=== PATIENT | male | born 1940 | race African-American/Black ===

== ENCOUNTER 2019-04-10 16:20 | Emergency (ER) | payer OTHER ==
[~2019-04-10] VITALS: Ht 185.4 cm; Wt 99.5 kg
[2019-04-10 16:25] VITALS: BP 158/93; TEMP 97.7
[2019-04-10 17:02] LABS: BASO # 0.1 (0.0-0.2); BASO % 1.3 % (0.0-2.0); EOS # 0.5 (0.0-0.7); EOS % 10.4 % (0-4.0); GRAN # 1.4 (1.4-6.5); GRAN % 31.8 % (42.2-75.2); HEMATOCRIT 45.4 % (42.0-52.0); LYMPH % 43.6 % (20.0-51.0); MEAN CELL VOLUME 90 fl (80.0-100.0); MEAN CORPUSCULAR HEMOGLOBIN 30 pg (27.0-31.0); MEAN CORPUSCULAR HGB CONC 33 g/dl (33.0-37.0); MEAN PLATELET VOLUME 9.5 fl (7.4-10.4); MONO # 0.6 (0.1-0.6); MONO % 12.7 % (1.7-9.3); PLATELET COUNT 182 K/mm3 (130-400); RED BLOOD COUNT 5.06 M/mm3 (4.20-5.60); REDCELL DISTRIBUTION WIDTH-CV 13.6 % (11.5-14.5)
[2019-04-10 17:15] LABS: ALANINE AMINOTRANSFERASE 15 U/L (21-72); ALBUMIN 3.8 gm/dL (3.5-5.0); ALKALINE PHOSPHATASE 79 U/L (50-136); ANION GAP 10 mmol/L (7-16); AST,SGOT 19 U/L (15-37); BILIRUBIN,TOTAL 0.3 mg/dL (0.0-1.0); BLOOD UREA NITROGEN 14 mg/dL (9-20); CALCIUM 8.8 mg/dL (8.4-10.2); CARBON DIOXIDE 25 mmol/L (22-30); CHLORIDE 105 mmol/L (98-107); CREATININE, serum 1.05 (0.66-1.25); GLUCOSE 104 mg/dL (74-106); POTASSIUM 4.3 mmol/L (3.4-5.0); SODIUM 140 mmol/L (137-145); TOTAL PROTEIN 7.2 gm/dL (6.4-8.2)
[2019-04-10 17:16] LABS: C-REACTIVE PROTEIN < 0.5 mg/dL (0.0-0.9)
[2019-04-10 17:18] LABS: INR 2.6 (0.8-3.0); PROTHROMBIN TIME 31.5 SECONDS (9.7-12.8)
[2019-04-10 17:24] LABS: D-DIMER < 200.00 ng/mLDDu (200-230)
[2019-04-10] MEDS ORDERED: CEPHALEXIN500 M1 PO (17:34)
[2019-04-10] MEDS ORDERED: GLUCOPHAGE XR750 MG PO (17:37)
[2019-04-10] MEDS ORDERED: STOOL SOFTENER100 M2 PO (17:38)
[2019-04-10] MEDS ORDERED: NEURONTIN100 MG/CAP PO (17:39)
[2019-04-10] MEDS ORDERED: LOPRESSOR 550 MG/TAB PO (17:41)
[2019-04-10] MEDS ORDERED: ALDACTONE 25MG25 M1 PO (17:41)
[2019-04-10] MEDS ORDERED: JANTOVEN5 MG PO (17:43)
[2019-04-10] MEDS ORDERED: ZESTRIL40 MG PO (17:43)
[2019-04-10] MEDS ORDERED: LASIX 40MG TABL40 MG PO (17:44)
[2019-04-10] MEDS ORDERED: PRINIVIL40 MG PO (17:44)
[2019-04-10] MEDS ORDERED: MEVACOR40 MG PO (17:45)
[2019-04-10 17:55] VITALS: PULSE 68
== END 2019-04-10 17:55 | disposition home or self-care (01) ==
LOC: COL.ER 16:20
PROVIDERS: Emergency Medicine
DX: R22.43 Localized swelling, mass and lump, lower limb, bilateral (principal); M79.662 Pain in left lower leg; I25.10 Atherosclerotic heart disease of native coronary artery without angina pectoris; I10 Essential (primary) hypertension; Z79.01 Long term (current) use of anticoagulants

== ENCOUNTER 2019-10-16 23:30 | Observation (INO) | payer MEDICARE ==
[~2019-10-16] VITALS: Ht 182.9 cm; Wt 101.3 kg
[~2019-10-16 23:30] MED LIST: ALDACTONE 25MG25 M1 PO; CEPHALEXIN500 M1 PO; GLUCOPHAGE XR750 MG PO; JANTOVEN5 MG PO; LASIX 40MG TABL40 MG PO; LOPRESSOR 550 MG/TAB PO; MEVACOR40 MG PO; NEURONTIN100 MG/CAP PO; PRINIVIL40 MG PO; STOOL SOFTENER100 M2 PO; ZESTRIL40 MG PO
[2019-10-17 00:31] LABS: BASO % 0.8 % (0.0-2.0); EOS # 0.1 (0.0-0.7); EOS % 2.8 % (0-4.0); GRAN # 2.8 (1.4-6.5); GRAN % 54.2 % (42.2-75.2); HEMATOCRIT 48.3 % (42.0-52.0); HEMOGLOBIN 15.3 g/dl (13.5-18.0); LYMPH # 1.5 (1.2-3.4); LYMPH % 30.2 % (20.0-51.0); MEAN CELL VOLUME 94 fl (80.0-100.0); MEAN CORPUSCULAR HEMOGLOBIN 30 pg (27.0-31.0); MEAN CORPUSCULAR HGB CONC 32 g/dl (33.0-37.0); MEAN PLATELET VOLUME 9.3 fl (7.4-10.4); MONO # 0.6 (0.1-0.6); MONO % 11.8 % (1.7-9.3); PLATELET COUNT 188 K/mm3 (130-400); RED BLOOD COUNT 5.14 M/mm3 (4.20-5.60); REDCELL DISTRIBUTION WIDTH-CV 13.9 % (11.5-14.5)
[2019-10-17 00:33] LABS: INR 1.1 (0.8-3.0); PROTHROMBIN TIME 12.3 SECONDS (9.7-12.8)
[2019-10-17 00:36] LABS: PARTIAL THROMBOPLASTIN TIME 37.1 SECONDS (26.0-37.0)
[2019-10-17 00:42] LABS: ALBUMIN 4.2 gm/dL (3.5-5.0); BILIRUBIN,TOTAL 1.1 mg/dL (0.0-1.0); CALCIUM 9.7 mg/dL (8.4-10.2); CREATININE, serum 1.24 (0.66-1.25); POTASSIUM 4.1 mmol/L (3.4-5.0); TOTAL PROTEIN 7.9 gm/dL (6.4-8.2)
[2019-10-17 03:42] VITALS: BP 179/103; PULSE 101; TEMP 98
[2019-10-17] MEDS ORDERED: XALATAN EYE DROPS (04:05)
[2019-10-17] MEDS ORDERED: TRIAM OI 0.1 454 TOP (04:08)
[2019-10-17] MEDS ORDERED: ELIQUIS 5MG PO (04:12)
[2019-10-17] MEDS ORDERED: TOPROL XL 25MG25 MG PO (04:15)
[2019-10-17] MEDS ORDERED: ALDACTONE 25MG25 M1 PO (04:16)
--- NOTE | 2019-10-17 04:40 | NUR ---
PATIENT'S ARRIVAL PATIENT IS SUSPIOUS OF STAFF ACTIONS AND PATIENT IS AFRAID OF GETTING ILL, FROM THE ROOM EQUIPMENT OR STAFF, ANXIOUS
--- NOTE | 2019-10-17 07:15 | NUR ---
Bedside shift report received from LEEANN Pedraza. Patient is sitting up in bed, full assessment completed, vital signs stable. Patient has a swollen lower lip and is slightly drooling, speech a little slurred from lip edema but able to communicate. Patient is slightly confused, but mostly oriented. Bed in lowest position. Side rails up x3. Call light and personal belongings within reach. Patient has no complaints or concerns at this time.
[2019-10-17 08:00] VITALS: BP 149/106; PULSE 94; TEMP 98.3
--- NOTE | 2019-10-17 09:00 | NUR ---
Attempted to give patient fluids PO to assess ability to swallow; however, patient was unable to use straw or drink from cup. 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 Will reassess later this shift, but physician made aware of this at this time.
[2019-10-17 11:36] VITALS: BP 149/88; PULSE 90; TEMP 98.2
--- NOTE | 2019-10-17 14:29 | NUR ---
SW attempted to meet with the patient to complete initial intake but the patient was hard to rouse. SW contacted the patient's daughter, Manuela ph # ([phone]) to complete initial intake. The patient lives in [facility] with Manuela. The patient has a cane and no other DME and is independent with ADLs. The patient sees a providers at [facility] and also at the [facility], but does not know what team he is on. The patient receives medications from the [place] and [facility]. Other pharmacies are used too if they are [facility]. The patient does not have advanced directives in the EMR. Manuela states the patient has two children, herself and a son, Jonathan Estrada. in [place], [place] ph# ([phone]). SHARON will continue to follow to ensure a safe discharge.
[2019-10-17 16:00] VITALS: BP 153/99; PULSE 77; TEMP 98.1
--- NOTE | 2019-10-17 19:15 | NUR ---
Bedside shift report given to LEEANN Wheeler and care handed over at this time.
[2019-10-17 20:00] VITALS: BP 144/81; PULSE 51; TEMP 97.8
[2019-10-18] VITALS: BP 147/93; PULSE 77; TEMP 97.8
[2019-10-18 04:00] VITALS: BP 155/89; PULSE 57; TEMP 98
[2019-10-18 06:06] LABS: BASO % 0.1 % (0.0-2.0); GRAN # 6.3 (1.4-6.5); GRAN % 82.7 % (42.2-75.2); HEMATOCRIT 44.5 % (42.0-52.0); HEMOGLOBIN 14.1 g/dl (13.5-18.0); LYMPH % 13.1 % (20.0-51.0); MEAN CELL VOLUME 92 fl (80.0-100.0); MEAN CORPUSCULAR HEMOGLOBIN 29 pg (27.0-31.0); MEAN CORPUSCULAR HGB CONC 32 g/dl (33.0-37.0); MEAN PLATELET VOLUME 9.9 fl (7.4-10.4); MONO # 0.3 (0.1-0.6); MONO % 3.8 % (1.7-9.3); PLATELET COUNT 193 K/mm3 (130-400); RED BLOOD COUNT 4.83 M/mm3 (4.20-5.60)
[2019-10-18 06:21] LABS: CALCIUM 9.4 mg/dL (8.4-10.2); CREATININE, serum 1.11 (0.66-1.25); POTASSIUM 4.3 mmol/L (3.4-5.0)
[2019-10-18 08:00] VITALS: BP 155/89; PULSE 57; TEMP 98.5
--- NOTE | 2019-10-18 10:57 | NUR ---
SW attended clinical rounds with the team. The patient is to have his diet advanced this day to see how he does eating since he has his lower lip angioedema. Will continue to [facility].
[2019-10-18 12:00] VITALS: BP 154/81; PULSE 71; TEMP 98.2
[2019-10-18] MEDS ORDERED: PREDNISONE20 MG PO ×2 (12:04→12:07)
--- NOTE | 2019-10-18 12:50 | NUR ---
Pt concerned to discharge home, pt informs "the doctor yesterday said that the swelling in my lips would be completely gone and back to normal by now, so I dont think I should go home." MD Darwin notified - 1257 MD Darwin here on unit speaking with pt. Pt educated by MD Darwin that swelling of lips will take several days to return to normal. Pt also stating concern of 1-2+ pitting edema in legs - legs assessed by myself and MD Darwin - no change from AM assessment Pt able to consume 100% of 2 full liquid meals without difficulty - pt does experience occasional dribbling of fluids during drinking - no choking or signs on aspiration assessed. Pt able to swallow pills without difficulty
--- NOTE | 2019-10-18 13:45 | NUR ---
Pt now expressing zero concerns regarding discharge home
--- NOTE | 2019-10-18 13:46 | NUR ---
Pt's cane and wallet with pt for discharge
--- NOTE | 2019-10-18 15:52 | NUR ---
The patient discharged home today, 10/17 with family support. There are no additional needs at this time.
== END 2019-10-18 14:15 | disposition home or self-care (01) ==
LOC: COL.ER 23:30 → IMCU 10-17 01:29
PROVIDERS: Emergency Medicine
DX: T78.3XXA Angioneurotic edema, initial encounter (principal); I10 Essential (primary) hypertension; E78.5 Hyperlipidemia, unspecified; E11.9 Type 2 diabetes mellitus without complications; Z79.84 Long term (current) use of oral hypoglycemic drugs; E66.9 Obesity, unspecified; F41.9 Anxiety disorder, unspecified; Z79.899 Other long term (current) drug therapy; Z88.8 Allergy status to other drugs, medicaments and biological substances
CPT/HCPCS: G0378; J1200; J1650; J1720; J2920; J2930; J7120

== ENCOUNTER 2020-05-19 17:16 | Emergency (ER) | payer MEDICARE ==
[~2020-05-19] VITALS: Ht 182.9 cm; Wt 99.5 kg
[~2020-05-19 17:16] MED LIST changes: +ELIQUIS 5MG PO; +PREDNISONE20 MG PO; +TOPROL XL 25MG25 MG PO; +TRIAM OI 0.1 454 TOP; +XALATAN EYE DROPS
[2020-05-19 17:28] VITALS: TEMP 98.2
[2020-05-19 20:00] LABS: BASO % 0.9 % (0.0-2.0); EOS # 0.3 (0.0-0.7); EOS % 6.1 % (0-4.0); GRAN # 1.7 (1.4-6.5); GRAN % 38.3 % (42.2-75.2); HEMATOCRIT 46.9 % (42.0-52.0); HEMOGLOBIN 14.9 g/dl (13.5-18.0); LYMPH # 1.8 (1.2-3.4); LYMPH % 40.8 % (20.0-51.0); MEAN CELL VOLUME 93 fl (80.0-100.0); MEAN CORPUSCULAR HEMOGLOBIN 30 pg (27.0-31.0); MEAN CORPUSCULAR HGB CONC 32 g/dl (33.0-37.0); MEAN PLATELET VOLUME 9.9 fl (7.4-10.4); MONO # 0.6 (0.1-0.6); MONO % 13.7 % (1.7-9.3); PLATELET COUNT 196 K/mm3 (130-400); RED BLOOD COUNT 5.05 M/mm3 (4.20-5.60); REDCELL DISTRIBUTION WIDTH-CV 13.5 % (11.5-14.5)
[2020-05-19 20:12] LABS: ALANINE AMINOTRANSFERASE 10 U/L (4-49); ALBUMIN 4.2 gm/dL (3.5-5.0); ALKALINE PHOSPHATASE 91 U/L (50-136); ANION GAP 8 mmol/L (7-16); AST,SGOT 20 U/L (15-37); BILIRUBIN,TOTAL 0.6 mg/dL (0.0-1.0); BLOOD UREA NITROGEN 18 mg/dL (9-20); CALCIUM 9.8 mg/dL (8.4-10.2); CARBON DIOXIDE 30 mmol/L (22-30); CHLORIDE 102 mmol/L (98-107); CREATININE, serum 1.09 (0.66-1.25); GLUCOSE 97 mg/dL (74-106); LIPASE 75 U/L (23-300); MAGNESIUM 1.8 mg/dL (1.6-2.3); POTASSIUM 4.9 mmol/L (3.4-5.0); SODIUM 139 mmol/L (137-145); TOTAL PROTEIN 7.7 gm/dL (6.4-8.2)
[2020-05-19 20:26] LABS: TROPONIN-I < 0.012 ng/mL (0.000-0.035)
[2020-05-19 20:44] LABS: COLLECTION METHOD CLEAN CATCH
[2020-05-19 20:50] LABS: MUCOUS Present /lpf; PH 6 (5-8); SQUAMOUS EPITHELIAL None Seen /hpf; URINE APPEARANCE Clear; URINE BACTERIA None Seen /hpf; URINE BILIRUBIN Negative (NEGATIVE); URINE BLOOD Negative (NEGATIVE); URINE COLOR Yellow; URINE GLUCOSE Negative (NEGATIVE); URINE KETONE Negative (NEGATIVE); URINE LEUKOCYTE ESTERASE Negative (NEGATIVE); URINE NITRATE Negative (NEGATIVE); URINE PROTEIN(semi-quant) Negative (NEGATIVE); URINE RBC 0-2 /hpf; URINE UROBILINOGEN Negative (NEGATIVE); URINE WBC 0-2 /hpf
[2020-05-20 00:30] VITALS: BP 154/92; PULSE 62
== END 2020-05-20 00:30 | disposition home or self-care (01) ==
LOC: COL.ER 17:16
PROVIDERS: Emergency Medicine
DX: R53.83 Other fatigue (principal); R26.9 Unspecified abnormalities of gait and mobility; E11.9 Type 2 diabetes mellitus without complications; I10 Essential (primary) hypertension; I25.10 Atherosclerotic heart disease of native coronary artery without angina pectoris; Z95.9 Presence of cardiac and vascular implant and graft, unspecified; Z79.52 Long term (current) use of systemic steroids; Z79.01 Long term (current) use of anticoagulants; Z79.84 Long term (current) use of oral hypoglycemic drugs

== ENCOUNTER 2020-05-26 14:38 | Emergency (ER) | payer MEDICARE ==
[~2020-05-26] VITALS: Ht 182.9 cm; Wt 104.1 kg
[2020-05-26 14:58] VITALS: TEMP 98.2
[2020-05-26 16:38] LABS: COLLECTION METHOD CLEAN CATCH
[2020-05-26 16:49] LABS: MUCOUS Present /lpf; PH 5 (5-8); SQUAMOUS EPITHELIAL None Seen /hpf; URINE APPEARANCE Hazy; URINE BACTERIA None Seen /hpf; URINE BILIRUBIN Negative (NEGATIVE); URINE BLOOD Negative (NEGATIVE); URINE COLOR Yellow; URINE GLUCOSE Negative (NEGATIVE); URINE KETONE Negative (NEGATIVE); URINE LEUKOCYTE ESTERASE Negative (NEGATIVE); URINE NITRATE Negative (NEGATIVE); URINE PROTEIN(semi-quant) 1+ (NEGATIVE); URINE UROBILINOGEN Negative (NEGATIVE); URINE WBC 0-2 /hpf
[2020-05-26 18:56] LABS: BASO % 0.6 % (0.0-2.0); EOS # 0.3 (0.0-0.7); EOS % 4.8 % (0-4.0); GRAN # 2.2 (1.4-6.5); GRAN % 41.1 % (42.2-75.2); HEMOGLOBIN 14.1 g/dl (13.5-18.0); LYMPH # 2.1 (1.2-3.4); MEAN CELL VOLUME 90 fl (80.0-100.0); MEAN CORPUSCULAR HEMOGLOBIN 29 pg (27.0-31.0); MEAN CORPUSCULAR HGB CONC 33 g/dl (33.0-37.0); MEAN PLATELET VOLUME 9.8 fl (7.4-10.4); MONO # 0.7 (0.1-0.6); MONO % 13.3 % (1.7-9.3); PLATELET COUNT 211 K/mm3 (130-400); RED BLOOD COUNT 4.79 M/mm3 (4.20-5.60); REDCELL DISTRIBUTION WIDTH-CV 13.4 % (11.5-14.5)
[2020-05-26 19:09] LABS: ALBUMIN 3.4 gm/dL (3.5-5.0); BILIRUBIN,TOTAL 0.4 mg/dL (0.0-1.0); CALCIUM 9.3 mg/dL (8.4-10.2); CREATININE, serum 1.11 (0.66-1.25); POTASSIUM 3.6 mmol/L (3.4-5.0); TOTAL PROTEIN 6.8 gm/dL (6.4-8.2)
[2020-05-26 20:51] VITALS: BP 160/95; PULSE 72
== END 2020-05-26 21:00 | disposition home or self-care (01) ==
LOC: COL.ER 14:38
PROVIDERS: Nurse Practitioner Primary Care
DX: I86.1 Scrotal varices (principal); I10 Essential (primary) hypertension; E78.5 Hyperlipidemia, unspecified; E11.9 Type 2 diabetes mellitus without complications; I50.9 Heart failure, unspecified; Z79.84 Long term (current) use of oral hypoglycemic drugs; Z88.1 Allergy status to other antibiotic agents; Z87.891 Personal history of nicotine dependence; Z79.52 Long term (current) use of systemic steroids; Z79.01 Long term (current) use of anticoagulants
CPT/HCPCS: J2270; Q9967

== ENCOUNTER 2023-09-25 09:40 | Emergency (ER) | payer MEDICARE, OTHER ==
[~2023-09-25 09:40] MED LIST changes: +ASPIRIN 81M81 MG/TA2 PO; +COZAAR 50MG50 MG/TAB PO; +DEBROX OT; +FLOMAX 0.40.4 MG/CAP PO; +GENTLE LAXATIVE5 MG PO; +IMODIUM 2MG CAPS2 MG PO; +LASIX 20MG TABL20 MG PO; +LOVENOX120 MG/0.8 SQ; +MILK OF MA400 MG/52 PO; +MYLANTA MAXIMU355 M1 PO; +NAMENDA5 MG; +NAMENDA5 MG PO; +NATURAL SENNA8.6 MG PO; +NESINA12.5 PO; +PROBIOTIC ACID1 EAC3 PO; +ROCKLATAN 0.022.5 ML OP; +SENEXON-S 50-81 EACH PO; +TYLENOL 325MG325 MG PO; +TYLENOL SU325 MG/SUP RC; +VITAMIN D3400 I1
[2023-09-25 11:41] VITALS: TEMP 98.2
[2023-09-25] MEDS ORDERED: NS 1,000 ML IV ONE (12:00)
[2023-09-25 12:19] LABS: BASO % 0.9 % (0.0-2.0); EOS # 0.2 K/mm3 (0.0-0.7); EOS % 4.2 % (0.0-4.0); GRAN # 1.9 K/mm3 (1.4-6.5); GRAN % 43.7 % (42.2-75.2); HEMATOCRIT 50.7 % (42.0-52.0); HEMOGLOBIN 16.7 g/dl (13.5-18.0); LYMPH # 1.7 K/mm3 (1.2-3.4); LYMPH % 40.4 % (20.0-51.0); MEAN CELL VOLUME 92 fl (80.0-100.0); MEAN CORPUSCULAR HEMOGLOBIN 30 pg (27-31); MEAN CORPUSCULAR HGB CONC 33 g/dl (33.0-37.0); MEAN PLATELET VOLUME 9.8 fl (7.4-10.4); MONO # 0.5 K/mm3 (0.1-0.6); MONO % 10.6 % (1.7-9.3); PLATELET COUNT 168 K/mm3 (130-400); RED BLOOD COUNT 5.53 M/mm3 (4.20-5.60); REDCELL DISTRIBUTION WIDTH-CV 13.5 % (11.5-14.5)
[2023-09-25 12:38] LABS: ALBUMIN 3.9 g/dL (3.4-4.8); BILIRUBIN,TOTAL 0.5 mg/dL (0.2-1.2); C-REACTIVE PROTEIN 0.08 mg/dL (0.00-0.50); CALCIUM 10.2 mg/dL (8.4-10.2); CREATININE, serum 1.66 mg/dL (0.72-1.25); POTASSIUM 4.6 mEq/L (3.5-4.5); TOTAL PROTEIN 7.7 g/dl (6.2-8.1)
[2023-09-25] MEDS ORDERED: Iohexol 300 - 100 ML VIAL IV ONE (13:10)
[2023-09-25] MEDS ORDERED: NS 100 ML IV SCH (13:11)
[2023-09-25 16:03] VITALS: BP 134/72; PULSE 79
== END 2023-09-25 16:03 | disposition home or self-care (01) ==
LOC: COL.ER 09:40
PROVIDERS: Nurse Practitioner
DX: K59.00 Constipation, unspecified (principal); Z87.891 Personal history of nicotine dependence
CPT/HCPCS: J7030; Q9967

== ENCOUNTER 2024-03-13 11:30 | Inpatient (IN) | payer OTHER ==
[~2024-03-13] VITALS: Ht 177.8 cm; Wt 90.9 kg
[2024-03-13] MEDS ORDERED: Succinylcholine PF 200 MG/10 ML SYRINGE IV SCH (11:39)
[2024-03-13] MEDS ORDERED: EPINEPHrine 1 MG/10 ML (1:10,000) SYRINGE IV SCH (11:46)
[2024-03-13] MEDS ORDERED: fentaNYL 50 MCG/ML 2 ML VIAL IV ONE (12:00)
[2024-03-13 12:05] LABS: HEMATOCRIT 51.8 % (42.0-52.0); MEAN CELL VOLUME 97 fl (80.0-100.0); MEAN CORPUSCULAR HEMOGLOBIN 30 pg (27-31); MEAN CORPUSCULAR HGB CONC 31 g/dl (33.0-37.0); PLATELET COUNT 143 K/mm3 (130-400); RED BLOOD COUNT 5.37 M/mm3 (4.20-5.60); REDCELL DISTRIBUTION WIDTH-CV 13.7 % (11.5-14.5)
--- NOTE | 2024-03-13 12:08 | NUR ---
SHARON received information that pt arrived as a code in progress. Pt was found down by Home Health nurse. SHARON called daughter, Manuela [phone] [phone] and left voicemails. SHARON called Makenna at [facility] who has no further DNR or DPOA-HC. She will reach out to the [facility] to retrieve anything. Later confirmed there were no additonal documents, but their [place] nursing notes report he is a DNR. SHARON located son-in-law, Ajith Gandhi [phone] and provided update and needing to speak with Manuela. He reports they are at the [facility] and daughter is in the back getting surgery. He was informed of the urgency and SANDRINE Milligan [facility]. Daughter was under anesthesia, but able to vocalize that pt is likely a DNR. SHARON found History and Physical and notes from 2021 indicating a DNR or no intubation in records. SHARON spoke with Levar Mcgee who has no further information and has had pt on services for awhile. SHARON updated RN's, SANDRINE Milligan, and Dr. Shipley on pt's NOK status and reported wishes of DNR, in the event pt codes again. He is intubated at this time due to prior unknown code status upon arrival and no NOK reporting such.
[2024-03-13 12:15] LABS: ALBUMIN 3.1 g/dL (3.4-4.8); BILIRUBIN,TOTAL 0.6 mg/dL (0.2-1.2); CALCIUM 9.1 mg/dL (8.4-10.2); CREATININE, serum 1.76 mg/dL (0.72-1.25); POTASSIUM 4.1 mEq/L (3.5-4.5); TOTAL PROTEIN 6.6 g/dl (6.2-8.1)
[2024-03-13] MEDS ORDERED: Etomidate 20 MG/10 ML VIAL IV ONE (12:15)
[2024-03-13 12:29] LABS: TROPONIN-I 0.074 ng/mL (0.00-0.033)
[2024-03-13 12:33] VITALS: BP 86/64; PULSE 113
[2024-03-13] MEDS ORDERED: cefTRIAXone 1 G in Water For Injection,Sterile 10 ML IV ONE (12:45)
[2024-03-13 12:53] VITALS: BP 95/67; PULSE 112
[2024-03-13 13:12] LABS: LYMPHOCYTE 45 % (20.0-51.0); NEUTROPHILS 41 % (42.0-75.2)
[2024-03-13 13:13] VITALS: BP 110/73; PULSE 110
[2024-03-13 13:13] LABS: PLATELET ESTIMATE NORMAL (NORMAL)
[2024-03-13 13:14] LABS: EOSINOPHIL 1 % (0-4); METAMYELOCYTE 2 % (0-0)
[2024-03-13 13:33] VITALS: BP 102/73; PULSE 106
[2024-03-13] MEDS ORDERED: Ondansetron 4 MG/2 ML VIAL IV PRN ×2 (13:45→16:45)
[2024-03-13] MEDS ORDERED: fentaNYL 100 ML IV SCH (14:45)
[2024-03-13] MEDS ORDERED: Albuterol 0.083% Neb Soln 2.5 MG/3 ML UD IH PRN (15:15)
[2024-03-13] MEDS ORDERED: Naloxone 0.4 MG/ML VIAL IV PRN (15:15)
--- NOTE | 2024-03-13 15:38 | NUR ---
convention worker was informed by LEEANN Zamarripa that pt's family is in the waiting room. Grand-daughter saw pt earlier and was at bedside and obtained update. SW spoke with RN who was agreeable to SW provided update on status and if they would like to continue aggressive vs comfort care. SW met with daughter, Manuela, son-in-law, Ray, and grand-daughter. They report to have a DNR order and advanced health directive. SW advised they have the record for no life prolonging services. Family would like to see pt before making a decision to proceed with aggressive vs comfort care. RN aware and taking family to pt's ER room.
--- NOTE | 2024-03-13 16:19 | NUR ---
hoist worker and LEEANN Zamarripa met with pt's family and they report wanting pt to be extubated and on comfort care. They report pt has been "unwell" for awhile. RN informing hospitalist and will transition him to the med/surg floor. Discharge Plan: comfort care
[2024-03-13] MEDS ORDERED: Atropine 1% Ophth Soln 2 ML BOTTLE SL PRN (16:45)
[2024-03-13] MEDS ORDERED: Morphine 4 MG/ML VIAL IV PRN (16:45)
[2024-03-13] MEDS ORDERED: Morphine 4 MG/ML VIAL IV ONE (16:45)
[2024-03-13] MEDS ORDERED: Scopolamine 1 MG Delivered 3-Day PATCH TD SCH (16:45)
[2024-03-13] MEDS ORDERED: LORazepam 2 MG/ML 1 ML VIAL IV PRN (16:45)
--- NOTE | 2024-03-13 19:10 | NUR ---
PATIENT HAS ARRIVED TO ROOM 301. MOANS WHEN TRANSFERRED FROM ED CART TO ROOM BED, REQUIRED SLIDE BOARD FOR TRANSFER. QUITE LETHARGIC AND UNABLE TO ANSWER QUESTIONS. CALL LIGHT WITHIN REACH. BED LOCKED AND IN LOW POSITION WITH BED ALARM ON
--- NOTE | 2024-03-13 19:37 | NUR ---
Patient arrived via cart from ED to room 301 at approximately 1845. Pt moved over to bed via slide board. Patient moaned loudly with transfer. Ativan and Morphine administered. Pt somnolent and doesn't respond to questions- only opens eyes briefly to verbal stimuli. Warm blanket provided. Bedside report given to LEEANN Hartmann at 1900.
[2024-03-13] MEDS ORDERED: Albuterol 0.083% Neb Soln 2.5 MG/3 ML UD IH SCH (20:00)
--- NOTE | 2024-03-13 20:34 | NUR ---
SENIOR ANIMAL TRAINER PRESENT ASKING ABOUT DRAWING NEW D-DIMER. SINCE PATIENT IS SUPPOSED TO BE COMFORT CARE, CALLED HOSPITALIST TATI SALAS, AND WAS ADVISED THAT SINCE PATIENT IS COMFORT CARE WE WILL NOT BE REPEATING D-DIMER.
[2024-03-14 06:21] VITALS: BP 91/64; PULSE 104; TEMP 102.2
--- NOTE | 2024-03-14 06:51 | NUR ---
Assessment complete. Patient respirations 30-35 per minute on RA. Pt has audible labored moist breath sounds. Repositioning schedule in place. Previous shift reports fever. Will contact provider for CA Tylenol.
--- NOTE | 2024-03-14 10:55 | NUR ---
Initial visit attempt; Patient sleeping, Senior Clinician left an [place] Card letting patient know of the availability of Spiritual Care at our hospital and offering him God's blessings from [facility] Senior Clinician.
--- NOTE | 2024-03-14 11:00 | NUR ---
Dr. Bhatt notified of patient's fever- order obtained for Tylenol. Pt's most recent temp 100.2 axillary. Tylenol LA administered at 0921. Patient medicated with Ativan and Morphine prior to administering Tylenol. Pt very stiff/rigid with turning and moans loudly. Atropine administered SL for excessive secretions. Pt repositioned to left side at that time. Pt continues to have respirations of 30 per minute but breath sounds no longer audibly moist. Extremities cool. Urine output scant.
--- NOTE | 2024-03-14 12:26 | NUR ---
Pt medicated with Morphine IVP and repositioned. Pt opened his eyes and groaned minimally while repositioning. Respirations still labored but decreased at 28 per minute. Diaphoretic- axillary temp down to 99.4. Cool cloth placed on forehead. Daughter Sarah called earlier this morning for update and stated she would be in to visit later today.
--- NOTE | 2024-03-14 13:09 | NUR ---
SHARON spoke with RN Hina regarding patient's status. She reports that patient is being kept comfortable and no family has been present. SW called patient's daughter Manuela. She reports that she has talked with RN a couple of times today and is being kept updated on patient's condition. Manuela reports having had surgery yesterday and is not feeling well due to medications. She is hopeful to be able to come visit patient later today if she is feeling better. Daughter voiced no needs at this time. Discharge plan: comfort care
--- NOTE | 2024-03-14 16:05 | NUR ---
Increased secretions noted with respirations. Atropine gtt administered SL. Pt medicated with Morphine and Ativan IVP prior to repositioning. Pt opened eyes and groaned but otherwise non responsive. Axillary temp 99.2. Patient's billing representative at bedside visiting.
--- NOTE | 2024-03-14 18:00 | NUR ---
Granddaughter Balbina in to visit for approximately 1 1/2 hours. Pt respirations labored at 36 breaths per minute. Secrections improved from since previous entry.
--- NOTE | 2024-03-14 18:45 | NUR ---
PATIENT RESTING IN BED WITH TV OFF WITH NO FAMILY PRESENT WITH SHALLOW RESPIRATIONS NOTED. PATIENT MOANS TO PAINFUL STIMULI. PATIENT RESTING WITH EYES CLSOED. INT TO RIGHT IJ AND LEFT AC INTACT WITH NO COMPLICATIONS NOTED. MORGAN CATH INTACT, PATENT, AND DRAINING SMALL AMOUNT OF TEA COLORED URINE. BEDSIDE SHIFT REPORT COMPLETED WITH ADRIENNE. PATIENT TURNED AT THIS TIME TO LEFT SIDE. ALL NEEDS MET. BED IN LOW POSITION WITH WHEELS LOCKED WITH RAILS UP X3 AND CALL LIGHT WITHIN REACH. BED ALARM ON.
--- NOTE | 2024-03-14 18:47 | NUR ---
Ativan and Morphine administered IVP prior to repositioning to left side. Pt moaned and opened eyes with repositioning. Bedside report given to Tarah House RN.
--- NOTE | 2024-03-14 21:20 | NUR ---
PATIENT RESTING IN BED WITH EYES CLOSED WITH MOUTH OPEN WITH TV OFF WITH NO FAMILY PRESENT WITH SHALLOW TACHY RESPIRATIONS NOTED. PATIENT ON ROOM AIR. INT TO LEFT AC AND RIGHT IJ INTACT WITH NO COMPLICATIONS NOTED. MORGAN CATH INTACT, PATENT, AND DRAINING TEA COLORED CLEAR URINE. ASSESSMENT AND MEDICATION ADMINISTRATION COMPLETED AT THIS TIME. SEE EMAR. RESPIRATION RATE IMPROVED AFTER MEDICATION. PATIENT TOLERATED WELL. PATIENT TURNED TO RIGHT SIDE. BED IN LOW POSITION WITH WHEELS LOCKED WITH RAILS UP X3 AND CALL LIGHT WITHIN REACH. BED ALARM ON.
--- NOTE | 2024-03-15 06:45 | NUR ---
Bedside report rec'd from LEEANN Rascon. Tarah medicated patient with Morphine and Ativan and then patient repositioned. Pt didn't open his eyes or groan with repositioning. Respirations shallow and labored 32 per minute.
--- NOTE | 2024-03-15 11:01 | NUR ---
Shaved patient's face and provided oral and bathing care. Pt medicated with Morphine and Ativan prior to repositioning. Respirations still shallow and labored. Pt only opened eyes briefly and didn't moan with repositioning.
--- NOTE | 2024-03-15 11:55 | NUR ---
Family at bedside. Dr. Roth making rounds. Requested increase in Morphine for air hunger. New order received.
[2024-03-15] MEDS ORDERED: Morphine 4 MG/ML VIAL IV PRN (12:00)
--- NOTE | 2024-03-15 13:24 | NUR ---
SHARON attended clinical rounds with attending. SHARON met with patient's daughter, son in law and granddaughter to discuss options of care. Dr. Roth is making medication changes today and will monitor patient and revisit with family tomorrow for care options. SHARON discussed hospice house care and provided Medicare.gov list of hospice providers. Daughter asked that referral be sent to [facility] for [facility]. She is comfortable for patient to remain in hospital on comfort care and discuss possible transfer tomorrow with Dr. Roth if indicated. SHARON verified with daughter that patient does have Medicare A/B. SHARON located copy of patient's Medicare card in EMR and faxed referral packet to [facility]. SHARON notified business office of patient's Medicare coverage.
--- NOTE | 2024-03-15 15:57 | NUR ---
[facility] notified of patient , referral number [id number], patient is not a candidate, we may release the body. Family has chosen [facility] in [place].
--- NOTE | 2024-03-15 17:05 | NUR ---
Daughter, Manuela, came out to nurses desk reporting that the patient is not breathing. Patient's family (daughter and grandaughter) arrived approximately 5-10 minutes prior. Upon entering room, it was noted that patient was not breathing. This nurse confirmed apical pulse absent and confirmed with Luz Marina Deng, RN. Dr. Roth notified at 1530. TOD 1527. IV to right IJ and LAC d/c'd. Curran d/c'd- with 9ml of fluid removed from balloon. Body released to [facility] at 1705. Family left a purple blanket in the closet- the blanket was sent with the [facility]. Unable to remove the patient's bottom dentures. [facility] made aware.
== END 2024-03-15 17:05 | disposition expired | DRG 208 ==
LOC: COL.ER 11:30 → ICU 13:31 → MEDICAL 13:31
PROVIDERS: Personal Emergency Response Attendant; ADMIT Internal Medicine
PROC: 5A12012 Performance of Cardiac Output, Single, Manual (ICD-10-PCS; principal; 2024-03-13)
PROC: 5A1935Z Respiratory Ventilation, Less than 24 Consecutive Hours (ICD-10-PCS; 2024-03-13)
PROC: 0BH17EZ Insertion of Endotracheal Airway into Trachea, Via Natural or Artificial Opening (ICD-10-PCS; 2024-03-13)
DX: J96.01 Acute respiratory failure with hypoxia (principal); K72.00 Acute and subacute hepatic failure without coma; N17.9 Acute kidney failure, unspecified; E87.20 Acidosis, unspecified; I46.9 Cardiac arrest, cause unspecified; I50.9 Heart failure, unspecified; Z96.651 Presence of right artificial knee joint; Z66 Do not resuscitate; R79.89 Other specified abnormal findings of blood chemistry; Z88.8 Allergy status to other drugs, medicaments and biological substances; Z86.79 Personal history of other diseases of the circulatory system; Z95.1 Presence of aortocoronary bypass graft; E11.9 Type 2 diabetes mellitus without complications; Z51.5 Encounter for palliative care
CPT/HCPCS: J0171; J0696; J2060; J2270; J2704; J3010